=== PATIENT | male | born 1945 | race African-American/Black ===

== ENCOUNTER 2020-06-28 16:04 | Inpatient (IN) ==
[2020-06-28] MEDS ORDERED: oxyCODONE/ACETAMINOPHEN 5-325 MG TABLET PO PRN (17:14)
[2020-06-28] MEDS: oxyCODONE/ACETAMINOPHEN 5-325 MG TABLET PO PRN ×2 (17:53→22:10)
[2020-06-28 18:12] LABS: Basophils % 0.2 % (0.0-0.8); Eosinophils # 0.3 10*3/uL (0.0-0.87); Eosinophils % 1.5 % (0.00-10.9); Hematocrit 19.7 VOL% (42.0-52.0); Immature Granulocytes % 1.6 %; Immature Granulocytes Absolute 0.27 #; Lymphocytes # 1.1 10*3/uL (1.4-4.0); Lymphocytes % 6.4 % (21.2-54.2); Mean Corpuscular HGB Conc 26.9 GM/DL (32-36); Monocytes % 7.1 % (1.7-12.7); NRBC # 0.02 10*3/uL; Neutrophils % 83.2 % (38.7-73.9); Platelet Count 995 T/CUMM (130-400); Red Cell Distribution Width 18.1 % (9.3-17.3); White Blood Count 16.6 T/CUMM (4-12)
[2020-06-28] MEDS ORDERED: LORazepam 0.5 MG TABLET PO PRN (18:13)
[2020-06-28] MEDS ORDERED: HydrOXYzine PAMOATE 25 MG CAPSULE PO PRN (18:13)
[2020-06-28 18:15] LABS: Hemoglobin 5.3 GM/DL (14.0-18.0)
[2020-06-28 18:21] LABS: INR 1.1; PT Patient Result 12.2 SECS (9.8-11.9)
[2020-06-28 18:37] LABS: Anisocytosis Slight; Hypochromasia 2+; Microcytosis 1+; Ovalocytes Few; Platelet Estimate Increased; Polychromasia Slight; Target Cells Few
[2020-06-28 18:45] LABS: Albumin 2.9 G/DL (3.4-5.0); Bilirubin,Total 0.4 MG/DL (0.2-1.0); Calcium 8.7 MG/DL (8.5-10.1); Osmolality,Calculated 278.7 MOS/KG (273-304); Potassium 2.7 MMOL/L (3.5-5.1); Total Protein 6.4 G/DL (6.4-8.2)
[2020-06-28 18:45] LABS: Hematocrit 18.7 VOL% (42.0-52.0)
[2020-06-28] MEDS ORDERED: SODIUM CHLORIDE 0.9% 1,000 ML IV PRN (18:56)
[2020-06-28] MEDS: POTASSIUM CHLORIDE 20 MEQ TABLET PO PRN ×2 (19:48→22:10)
[2020-06-28] MEDS: PIPERACILLIN/TAZOBACTAM 3,375 MG in SODIUM CHLORIDE 0.9% 100 ML IV SCH (20:57)
[2020-06-28] MEDS: ATORVASTATIN 10 MG TABLET PO SCH (21:00)
[2020-06-28] MEDS: TAMSULOSIN 0.4 MG CAPSULE PO SCH (21:00)
[2020-06-28] MEDS: predniSONE 10 MG TABLET PO SCH (21:00)
[2020-06-28] MEDS: GABAPENTIN 100 MG CAPSULE PO SCH (21:00)
[2020-06-29] MEDS: POTASSIUM CHLORIDE 20 MEQ TABLET PO PRN (00:14)
[2020-06-29] MEDS: PIPERACILLIN/TAZOBACTAM 3,375 MG in SODIUM CHLORIDE 0.9% 100 ML IV SCH ×3 (05:58→20:12)
[2020-06-29] MEDS: PANTOPRAZOLE 40 MG TABLET PO SCH (06:05)
[2020-06-29] MEDS: oxyCODONE/ACETAMINOPHEN 5-325 MG TABLET PO PRN ×2 (06:35→20:21)
[2020-06-29 06:56] LABS: Hematocrit 30.7 VOL% (42.0-52.0)
[2020-06-29 07:01] LABS: Hemoglobin 9.1 GM/DL (14.0-18.0)
[2020-06-29] MEDS ORDERED: MULTIVITAMIN (BEROCCA) TABLET PO SCH (09:00)
[2020-06-29] MEDS ORDERED: FAMOTIDINE 20 MG/2 ML VIAL IV ONE (09:14)
[2020-06-29] MEDS ORDERED: propofoL 200 MG/20 ML VIAL IV ONE (09:17)
[2020-06-29] MEDS ORDERED: ONDANSETRON 4 MG/2 ML VIAL ONE ×2 (09:17→10:34)
[2020-06-29] MEDS ORDERED: LIDOCAINE 2% 5 ML VIAL ONE (09:17)
[2020-06-29] MEDS ORDERED: fentaNYL 100 MCG/2 ML VIAL ONE (09:18)
[2020-06-29] MEDS ORDERED: PIPERACILLIN/TAZOBACTAM 3,375 MG VIAL IV ONE (09:22)
[2020-06-29] MEDS: ASPIRIN CHEW 81 MG TABLET PO SCH (09:42)
[2020-06-29] MEDS: SPIRONOLACTONE 25 MG TABLET PO SCH (09:42)
[2020-06-29] MEDS: CLOPIDOGREL 75 MG TABLET PO SCH (09:43)
[2020-06-29] MEDS: GABAPENTIN 100 MG CAPSULE PO SCH ×3 (09:43→20:12)
[2020-06-29] MEDS: DULoxetine 30 MG CAPSULE PO SCH (09:43)
[2020-06-29] MEDS: TAMSULOSIN 0.4 MG CAPSULE PO SCH ×2 (09:43→20:11)
[2020-06-29] MEDS: MONTELUKAST 10 MG TABLET PO SCH (09:44)
[2020-06-29] MEDS: predniSONE 10 MG TABLET PO SCH ×2 (09:44→20:12)
[2020-06-29] MEDS: FINASTERIDE 5 MG TABLET PO SCH (09:44)
[2020-06-29] MEDS: lisinopriL 5 MG TABLET PO SCH (09:44)
[2020-06-29] MEDS ORDERED: SEVOFLURANE 1 UNIT/15 MINUTE INH ONE (10:13)
[2020-06-29] MEDS ORDERED: ONDANSETRON 4 MG/2 ML VIAL IV PRN (10:32)
[2020-06-29] MEDS ORDERED: HYDROmorphone 2 MG/1 ML VIAL ONE (10:34)
[2020-06-29] MEDS: HYDROmorphone 2 MG/1 ML VIAL IV PRN ×4 (10:36→10:51)
[2020-06-29] MEDS: SKIN HEALING OINT (AQUAPHOR) 50 GM TUBE TOP SCH (16:03)
[2020-06-29] MEDS: MULTIVITAMIN (BEROCCA) TABLET PO SCH (20:11)
[2020-06-29] MEDS: ATORVASTATIN 10 MG TABLET PO SCH (20:12)
[2020-06-30] MEDS: oxyCODONE/ACETAMINOPHEN 5-325 MG TABLET PO PRN ×6 (00:14→23:09)
[2020-06-30] MEDS: PIPERACILLIN/TAZOBACTAM 3,375 MG in SODIUM CHLORIDE 0.9% 100 ML IV SCH ×3 (04:10→20:38)
[2020-06-30] MEDS: PANTOPRAZOLE 40 MG TABLET PO SCH (06:34)
[2020-06-30] MEDS: predniSONE 10 MG TABLET PO SCH ×2 (08:24→20:38)
[2020-06-30] MEDS: MULTIVITAMIN (BEROCCA) TABLET PO SCH ×2 (08:24→20:38)
[2020-06-30] MEDS: MONTELUKAST 10 MG TABLET PO SCH (08:25)
[2020-06-30] MEDS: GABAPENTIN 100 MG CAPSULE PO SCH ×3 (08:25→20:38)
[2020-06-30] MEDS: TAMSULOSIN 0.4 MG CAPSULE PO SCH ×2 (08:25→20:38)
[2020-06-30] MEDS: CLOPIDOGREL 75 MG TABLET PO SCH (08:25)
[2020-06-30] MEDS: SPIRONOLACTONE 25 MG TABLET PO SCH (08:25)
[2020-06-30] MEDS: ASPIRIN CHEW 81 MG TABLET PO SCH (08:26)
[2020-06-30] MEDS: FINASTERIDE 5 MG TABLET PO SCH (08:26)
[2020-06-30] MEDS: lisinopriL 5 MG TABLET PO SCH (08:26)
[2020-06-30] MEDS: SKIN HEALING OINT (AQUAPHOR) 50 GM TUBE TOP SCH (08:26)
[2020-06-30] MEDS: DULoxetine 30 MG CAPSULE PO SCH (08:26)
[2020-06-30] MEDS: SODIUM HYPOCHLORITE 0.25% IRRIG 473 ML BOTTLE TOP SCH ×2 (08:51→23:11)
[2020-06-30] MEDS: ATORVASTATIN 10 MG TABLET PO SCH (20:38)
[2020-06-30] MEDS: diphenhydrAMINE CAP 25 MG CAPSULE PO PRN (23:51)
[2020-07-01] MEDS: oxyCODONE/ACETAMINOPHEN 5-325 MG TABLET PO PRN ×6 (04:09→23:54)
[2020-07-01] MEDS: PIPERACILLIN/TAZOBACTAM 3,375 MG in SODIUM CHLORIDE 0.9% 100 ML IV SCH ×3 (04:12→20:03)
[2020-07-01 05:26] LABS: Basophils % 0.2 % (0.0-0.8); Eosinophils % 0.1 % (0.00-10.9); Hematocrit 32.7 VOL% (42.0-52.0); Hemoglobin 9.8 GM/DL (14.0-18.0); Immature Granulocytes % 1.3 %; Immature Granulocytes Absolute 0.22 #; Lymphocytes # 0.8 10*3/uL (1.4-4.0); Lymphocytes % 4.5 % (21.2-54.2); Mean Corpuscular Volume 79.8 FL (87-102); Mean Platelet Volume 8.7 FL (9.6-12.0); Monocytes % 4.8 % (1.7-12.7); Neutrophils % 89.1 % (38.7-73.9); Platelet Count 840 T/CUMM (130-400); Red Cell Distribution Width 20.4 % (9.3-17.3); White Blood Count 16.8 T/CUMM (4-12)
[2020-07-01 05:52] LABS: Calcium 8.5 MG/DL (8.5-10.1); Osmolality,Calculated 275.7 MOS/KG (273-304); Potassium 3.8 MMOL/L (3.5-5.1)
[2020-07-01] MEDS: PANTOPRAZOLE 40 MG TABLET PO SCH (06:18)
[2020-07-01 07:03] LABS: Hypochromasia 2+; Lymphocytes 8 % (20-55); Platelet Estimate Increased; Segmented Neutrophils 89 % (50-85); Total Cells Counted 100
[2020-07-01] MEDS: MULTIVITAMIN (BEROCCA) TABLET PO SCH ×2 (08:03→20:01)
[2020-07-01] MEDS: ASPIRIN CHEW 81 MG TABLET PO SCH (08:03)
[2020-07-01] MEDS: CLOPIDOGREL 75 MG TABLET PO SCH (08:03)
[2020-07-01] MEDS: GABAPENTIN 100 MG CAPSULE PO SCH ×3 (08:03→20:01)
[2020-07-01] MEDS: MONTELUKAST 10 MG TABLET PO SCH (08:04)
[2020-07-01] MEDS: DULoxetine 30 MG CAPSULE PO SCH (08:04)
[2020-07-01] MEDS: lisinopriL 5 MG TABLET PO SCH (08:04)
[2020-07-01] MEDS: TAMSULOSIN 0.4 MG CAPSULE PO SCH ×2 (08:04→20:00)
[2020-07-01] MEDS: SODIUM HYPOCHLORITE 0.25% IRRIG 473 ML BOTTLE TOP SCH ×2 (08:04→21:37)
[2020-07-01] MEDS: SPIRONOLACTONE 25 MG TABLET PO SCH (08:04)
[2020-07-01] MEDS: FINASTERIDE 5 MG TABLET PO SCH (08:04)
[2020-07-01] MEDS: predniSONE 10 MG TABLET PO SCH ×2 (08:04→20:01)
[2020-07-01] MEDS: SKIN HEALING OINT (AQUAPHOR) 50 GM TUBE TOP SCH (08:10)
[2020-07-01] MEDS ORDERED: hydrALAZINE 20 MG/1 ML VIAL IV PRN (12:29)
[2020-07-01] MEDS: diphenhydrAMINE CAP 25 MG CAPSULE PO PRN (15:49)
[2020-07-01] MEDS: ATORVASTATIN 10 MG TABLET PO SCH (20:01)
[2020-07-02] MEDS: PIPERACILLIN/TAZOBACTAM 3,375 MG in SODIUM CHLORIDE 0.9% 100 ML IV SCH (03:36)
[2020-07-02] MEDS: oxyCODONE/ACETAMINOPHEN 5-325 MG TABLET PO PRN ×4 (03:37→20:48)
[2020-07-02] MEDS: PANTOPRAZOLE 40 MG TABLET PO SCH (06:03)
[2020-07-02] MEDS ORDERED: GENTAMICIN INJ 120 MG in PREMIX 1 EACH IV ONE (08:18)
[2020-07-02] MEDS ORDERED: GENTAMICIN INJ 80 MG in PREMIX 1 EACH IV SCH (08:30)
[2020-07-02] MEDS: DULoxetine 30 MG CAPSULE PO SCH (09:08)
[2020-07-02] MEDS: GABAPENTIN 100 MG CAPSULE PO SCH ×3 (09:08→20:35)
[2020-07-02] MEDS: TAMSULOSIN 0.4 MG CAPSULE PO SCH ×2 (09:08→20:34)
[2020-07-02] MEDS: SPIRONOLACTONE 25 MG TABLET PO SCH (09:09)
[2020-07-02] MEDS: MULTIVITAMIN (BEROCCA) TABLET PO SCH ×2 (09:09→20:35)
[2020-07-02] MEDS: FINASTERIDE 5 MG TABLET PO SCH (09:09)
[2020-07-02] MEDS: MONTELUKAST 10 MG TABLET PO SCH (09:09)
[2020-07-02] MEDS: ASPIRIN CHEW 81 MG TABLET PO SCH (09:09)
[2020-07-02] MEDS: predniSONE 10 MG TABLET PO SCH ×2 (09:10→20:34)
[2020-07-02] MEDS: lisinopriL 5 MG TABLET PO SCH (09:10)
[2020-07-02] MEDS: SODIUM HYPOCHLORITE 0.25% IRRIG 473 ML BOTTLE TOP SCH ×2 (09:10→22:59)
[2020-07-02] MEDS: SKIN HEALING OINT (AQUAPHOR) 50 GM TUBE TOP SCH (09:10)
[2020-07-02] MEDS: VANCOMYCIN INJ 1,000 MG in SODIUM CHLORIDE 0.9% 250 ML IV SCH ×2 (10:28→20:35)
[2020-07-02] MEDS: cefTRIAXone 1,000 MG in SODIUM CHLORIDE 0.9% 100 ML IV SCH (12:06)
[2020-07-02] MEDS: ATORVASTATIN 10 MG TABLET PO SCH (20:35)
[2020-07-03] MEDS: oxyCODONE/ACETAMINOPHEN 5-325 MG TABLET PO PRN ×5 (02:24→22:43)
[2020-07-03] MEDS: PANTOPRAZOLE 40 MG TABLET PO SCH (05:50)
[2020-07-03] MEDS: MULTIVITAMIN (BEROCCA) TABLET PO SCH ×2 (09:14→20:29)
[2020-07-03] MEDS: lisinopriL 5 MG TABLET PO SCH (09:15)
[2020-07-03] MEDS: ASPIRIN CHEW 81 MG TABLET PO SCH (09:15)
[2020-07-03] MEDS: SPIRONOLACTONE 25 MG TABLET PO SCH (09:15)
[2020-07-03] MEDS: MONTELUKAST 10 MG TABLET PO SCH (09:15)
[2020-07-03] MEDS: predniSONE 10 MG TABLET PO SCH ×2 (09:15→20:29)
[2020-07-03] MEDS: DULoxetine 30 MG CAPSULE PO SCH (09:16)
[2020-07-03] MEDS: SKIN HEALING OINT (AQUAPHOR) 50 GM TUBE TOP SCH (09:16)
[2020-07-03] MEDS: SODIUM HYPOCHLORITE 0.25% IRRIG 473 ML BOTTLE TOP SCH ×2 (09:16→20:31)
[2020-07-03] MEDS: VANCOMYCIN INJ 1,000 MG in SODIUM CHLORIDE 0.9% 250 ML IV SCH (09:20)
[2020-07-03] MEDS: TAMSULOSIN 0.4 MG CAPSULE PO SCH ×2 (10:40→20:29)
[2020-07-03] MEDS: FINASTERIDE 5 MG TABLET PO SCH (10:41)
[2020-07-03] MEDS: GABAPENTIN 100 MG CAPSULE PO SCH ×3 (10:41→20:33)
[2020-07-03] MEDS: cefTRIAXone 1,000 MG in SODIUM CHLORIDE 0.9% 100 ML IV SCH (11:51)
[2020-07-03] MEDS: ATORVASTATIN 10 MG TABLET PO SCH (20:28)
[2020-07-03] MEDS: LINEZOLID 600 MG TABLET PO SCH (20:29)
[2020-07-04] MEDS: oxyCODONE/ACETAMINOPHEN 5-325 MG TABLET PO PRN ×3 (03:58→14:04)
[2020-07-04] MEDS: PANTOPRAZOLE 40 MG TABLET PO SCH (06:22)
[2020-07-04] MEDS: LINEZOLID 600 MG TABLET PO SCH (09:32)
[2020-07-04] MEDS: TAMSULOSIN 0.4 MG CAPSULE PO SCH (09:32)
[2020-07-04] MEDS: GABAPENTIN 100 MG CAPSULE PO SCH (09:32)
[2020-07-04] MEDS: SPIRONOLACTONE 25 MG TABLET PO SCH (09:32)
[2020-07-04] MEDS: ASPIRIN CHEW 81 MG TABLET PO SCH (09:32)
[2020-07-04] MEDS: lisinopriL 5 MG TABLET PO SCH (09:32)
[2020-07-04] MEDS: FINASTERIDE 5 MG TABLET PO SCH (09:32)
[2020-07-04] MEDS: MULTIVITAMIN (BEROCCA) TABLET PO SCH (09:32)
[2020-07-04] MEDS: MONTELUKAST 10 MG TABLET PO SCH (09:32)
[2020-07-04] MEDS: SODIUM HYPOCHLORITE 0.25% IRRIG 473 ML BOTTLE TOP SCH (09:33)
[2020-07-04] MEDS: SKIN HEALING OINT (AQUAPHOR) 50 GM TUBE TOP SCH (09:33)
[2020-07-04] MEDS: predniSONE 10 MG TABLET PO SCH (09:33)
[2020-07-04 11:58] VITALS: BP 164/80
== END 2020-07-04 14:23 | disposition home health service (06) | DRG 566 ==
LOC: N.3E → OBSVTOIN 16:28
PROVIDERS: ADMIT Surgery; ATTEND Surgery